=== PATIENT | female | born 1990 | race African-American/Black ===

== ENCOUNTER 2024-03-01 20:15 | Emergency (ER) | payer OTHER ==
[~2024-03-01] VITALS: Ht 162.6 cm; Wt 61.0 kg
[2024-03-01 20:25] VITALS: BP 115/62; PULSE 90; RESP 19; TEMP 97.8; O2SAT 97
[2024-03-01] MEDS ORDERED: IBUPROFEN 600MG TABLET PO ONE (21:15)
[2024-03-01] MEDS ORDERED: NAPR-681 MT (22:32)
== END 2024-03-01 23:18 | disposition home or self-care (01) ==
LOC: ER 20:15
DX: M79.10 Myalgia, unspecified site (principal); R07.81 Pleurodynia; J45.909 Unspecified asthma, uncomplicated
CPT/HCPCS: 71101; 72100; 73562; 99284